=== PATIENT | female | born 1960 | race Caucasian/White ===

== ENCOUNTER 2017-08-26 20:00 | Emergency (ER) | payer OTHER ==
[~2017-08-26 20:00] MED LIST: BECL80AE3 INH; CLOB0.055 TOPICAL; CYCL5TAB PO; KETO2CRE TOPICAL; PANT40TA3 PO; SERT-129 PO; SIMV40TA PO; VENTAER INH
[2017-08-26 20:02] VITALS: BP 108/69; PULSE 106; RESP 16; TEMP 99; O2SAT 95
--- NOTE | 2017-08-26 20:57 | RADRPT ---
EXAM DATE/TIME: 08/26/2017 20:35 [place] COMPARISON: No previous studies available for comparison. INDICATIONS : Cough. MEDICAL HISTORY : Asthma SURGICAL HISTORY : Appendectomy. Hysterectomy. Breast reduction with reconstruction ENCOUNTER: Initial ACUITY: 1 day PAIN SCORE: 0/10 LOCATION: Bilateral chest FINDINGS: PA and lateral views of the chest demonstrate the lungs to be symmetrically aerated without evidence of mass, infiltrate or effusion. The cardiomediastinal contours are unremarkable. Osseous structure s are intact. CONCLUSION: No acute disease. Juan Miguel Alamo MD on August 26, 2017 at 20:54 Board Certified Radiologist. This report was verified electronically.
[2017-08-26 22:04] LABS: BACTERIA, URINE MOD /hpf; BILIRUBIN, URINE NEG (NEG); BLOOD, URINE SMALL (NEG); GLUCOSE,URINE NEG (NEG); KETONE, URINE NEG (NEG); MUCUS URINE MOD /lpf (OCC); NITRITE,URINE NEG (NEG); PH, URINE 5.5 (5.0-8.5); SQUAMOUS EPITHELIAL CELL URINE 3 /hpf (0-5); URINE COLOR YELLOW (YELLW/STRAW); URINE LEUKOCYTE ESTERASE LARGE (NEG)
[2017-08-26 22:50] VITALS: BP 129/70; PULSE 84; RESP 20; O2SAT 96
[2017-08-26] MEDS ORDERED: SODIUM CHLORIDE 0.9% FLUSH 10 ML FLUSH IVF PRN (23:00)
[2017-08-26] MEDS ORDERED: methylPREDNISolone SOD SUCC 125 MG/2 ML VIAL IV PUSH ONE (23:00)
[2017-08-26 23:04] LABS: AUTOMATED NEUTROPHIL # 9.7 TH/MM3 (1.8-7.7); BASOPHIL # 0.1 TH/MM3 (0-0.2); BASOPHIL % 0.4 % (0.0-2.0); EOSINOPHIL # 0.4 TH/MM3 (0-0.4); EOSINOPHIL % 2.8 % (0.0-4.0); HEMATOCRIT 39.2 % (35.0-46.0); HEMOGLOBIN 13.5 GM/DL (11.6-15.3); LYMPH % 13.1 % (9.0-44.0); LYMPHOCYTE # 1.7 TH/MM3 (1.0-4.8); MEAN CELL VOLUME 83.8 FL (80.0-100.0); MEAN CORPUSCULAR HEMOGLOBIN 28.9 PG (27.0-34.0); MEAN CORPUSCULAR HGB CONC 34.4 % (32.0-36.0); MEAN PLATELET VOLUME 6.3 FL (7.0-11.0); MONO % 7.5 % (0.0-8.0); NEUT % 76.2 % (16.0-70.0); PLATELET COUNT 322 TH/MM3 (150-450); RED BLOOD COUNT 4.68 MIL/MM3 (4.00-5.30); RED CELL DISTRIBUTION WIDTH 12.9 % (11.6-17.2); WHITE BLOOD COUNT 12.7 TH/MM3 (4.0-11.0)
--- NOTE | 2017-08-26 23:04 | PD ---
HPI Chief Complaint: Cold / Flu Symptoms Time Seen by Provider: 22:39 Travel History International Travel<30 days: No Contact w/Intl Traveler<30days: No Traveled to known affect area: No History of Present Illness HPI 57-year-old female complains of coughing congestion and wheezing shortness of breath and right groin pain. Patient has history of asthma. Patient states that the symptoms started yesterday. Patient states that she has dry cough. Patient states that she has chest tightness since yesterday also. Patient denies any fever chills. Patient states that she has shortness of breath. Patient complains of mild aching headache and body ache also. Patient states that she has chronic recurrent rash on the feet. Patient started having right inguinal pain since yesterday. Patient states that she fell some painful mass on the right groin area since yesterday. Patient denies any dysuria or frequency. PFSH Past Medical History Arthritis: Yes Asthma: No Blood Disorders: No Anxiety: Yes Depression: No Heart Rhythm Problems: No Cancer: No Cardiovascular Problems: No High Cholesterol: No Chest Pain: No Congestive Heart Failure: No COPD: No Diabetes: No Diminished Hearing: No Endocrine: No Hypertension: No Immune Disorder: No Implanted Vascular Access Dvce: No Musculoskeletal: No Neurologic: No Psychiatric: No Reproductive: No Respiratory: No Radiation Therapy: No Sleep Apnea: No Thyroid Disease: No Tetanus Vaccination: < 5 Years ?: Not Menopausal: Yes Past Surgical History Appendectomy: Yes Section: Yes (3) Hysterectomy: Yes Tonsillectomy: Yes Other Surgery: Yes (breast reconstrution, appendectomy,c section) Social History Alcohol Use: Yes (occassionally ) Tobacco Use: No Substance Use: No Allergies-Medications (Allergen,Severity, Reaction): Coded Allergies: hydromorphone (Verified Adverse Reaction, Mild, 08/26/17) Reported Meds & Prescriptions Reported Meds & Active Scripts Active Simvastatin 40 Mg Tab 40 Mg PO HS Sertraline (Sertraline HCl) 100 Mg Tab 100 Mg PO DAILY Flexeril (Cyclobenzaprine HCl) 5 Mg Tab 5 Mg PO TID Qvar Inh (Beclomethasone Dipropionate) 80 Mcg/Act Aero 1 Puff INH BID Ventolin Hfa 18 GM Inh (Albuterol Sulfate) 90 Mcg/Act Aer 2 Puff INH Q4H PRN Reported Ketoconazole Topical 2% Cream Unknown Dose TOPICAL BID Clobetasol Topical (Clobetasol Propionate) Unknown Strength Cream 0.05 % TOPICAL BID Pantoprazole (Pantoprazole Sodium) 40 Mg Tab 40 Mg PO DAILY Review of Systems General / Constitutional: No: Fever Eyes: No: Visual changes HENT: No: Headaches Cardiovascular: No: Chest Pain or Discomfort Respiratory: Positive: Cough, Shortness of Breath, Wheezing Gastrointestinal: No: Abdominal Pain Genitourinary: No: Dysuria Musculoskeletal: No: Pain Skin: No Rash Neurologic: No: Weakness Psychiatric: No: Depression Endocrine: No: Polydipsia Hematologic/Lymphatic: No: Easy Bruising Physical Exam Narrative GENERAL: Well-nourished, well-developed patient. SKIN: Focused skin assessment warm/dry. HEAD: Normocephalic. EYES: No scleral icterus. No injection or drainage. Throat: Nonerythematous. NECK: Supple, trachea midline. No JVD or lymphadenopathy. CARDIOVASCULAR: Regular rate and rhythm without murmurs, gallops, or rubs. RESPIRATORY: Breath sounds equal bilaterally. No accessory muscle use. Patient has mild to moderate expiratory wheezes bilaterally. No rhonchi. GASTROINTESTINAL: Abdomen soft, non-tender, nondistended. MUSCULOSKELETAL: No cyanosis, or edema. BACK: Nontender without obvious deformity. No CVA tenderness. Patient has bilateral inguinal lymphadenopathy, right worse than left. Patient has macerated red rash on bilateral feet on the plantar aspect. No discharge noted. Mild tenderness on palpation. Data Data Last Documented VS Vital Signs Date Time Temp Pulse Resp B/P (MAP) Pulse Ox O2 Delivery O2 Flow Rate FiO2 08/26/17 23:36 96 22 131/72 (91) 98 Nasal Cannula 2.00 08/26/17 20:02 99.0 Orders Orders Chest, Pa & Lat (08/26/17 ) Influenzae A/B Antigen (08/26/17 20:26) Complete Blood Count With Diff (08/26/17 20:26) Basic Metabolic Panel (Bmp) (08/26/17 20:26) Urinalysis - C+S If Indicated (08/26/17 20:26) Urine Culture (08/26/17 20:52) Iv Access Insert/Monitor (08/26/17 22:48) Oximetry (08/26/17 22:48) Sodium Chloride 0.9% Flush (Ns Flush) (08/26/17 23:00) Methylprednisolone So Succ Inj (Solumedr (08/26/17 23:00) Albuterol-Ipratropium Neb (Duoneb Neb) (08/26/17 23:00) Labs Laboratory Tests Test 08/26/17 20:52 08/26/17 22:50 Urine Color YELLOW Urine Turbidity HAZY Urine pH 5.5 Urine Specific [place] 1.024 Urine Protein TRACE mg/dL Urine Glucose (UA) NEG mg/dL Urine Ketones NEG mg/dL Urine Occult Blood SMALL Urine Nitrite NEG Urine Bilirubin NEG Urine Urobilinogen LESS THAN 2.0 MG/DL Urine Leukocyte Esterase LARGE Urine RBC 2 /hpf Urine WBC 2 /hpf Urine Squamous Epithelial Cells 3 /hpf Urine Bacteria MOD /hpf Urine Mucus MOD /lpf Microscopic Urinalysis Comment CULTURE INDICATED White Blood Count 12.7 TH/MM3 Red Blood Count 4.68 MIL/MM3 Hemoglobin 13.5 GM/DL Hematocrit 39.2 % Mean Corpuscular Volume 83.8 FL Mean Corpuscular Hemoglobin 28.9 PG Mean Corpuscular Hemoglobin Concent 34.4 % Red Cell Distribution Width 12.9 % Platelet Count 322 TH/MM3 Mean Platelet Volume 6.3 FL Neutrophils (%) (Auto) 76.2 % Lymphocytes (%) (Auto) 13.1 % Monocytes (%) (Auto) 7.5 % Eosinophils (%) (Auto) 2.8 % Basophils (%) (Auto) 0.4 % Neutrophils # (Auto) 9.7 TH/MM3 Lymphocytes # (Auto) 1.7 TH/MM3 Monocytes # (Auto) 1.0 TH/MM3 Eosinophils # (Auto) 0.4 TH/MM3 Basophils # (Auto) 0.1 TH/MM3 CBC Comment DIFF FINAL Differential Comment Blood Urea Nitrogen 10 MG/DL Creatinine 1.05 MG/DL Random Glucose 118 MG/DL Calcium Level 9.2 MG/DL Sodium Level 136 MEQ/L Potassium Level 3.7 MEQ/L Chloride Level 102 MEQ/L Carbon Dioxide Level 27.2 MEQ/L Anion Gap 7 MEQ/L Estimat Glomerular Filtration Rate 54 ML/MIN MDM Medical Decision Making Medical Screen Exam Complete: Yes Emergency Medical Condition: Yes Interpretation(s) Last Impressions Chest X-Ray 08/26/17 0000 Signed Impressions: Service Date/Time: Saturday, August 26, 2017 20:35 - CONCLUSION: No acute disease. Juan Miguel Alamo MD 12:06 AM. CBC WBC 12.7. 76 neutrophil. Creatinine 1.05. GFR 54. UA positive for bacteria. Influenza AB antigen negative. Differential Diagnosis Differential diagnoses including acute exacerbation of asthma, bronchitis, pneumonia, epididymitis, cellulitis. Narrative Course 57-year-old female with coughing congestion wheezing shortness of breath and bilateral feet rash and inguinal lymphadenopathy. Solu-Medrol 125 mg IV. Albuterol with Atrovent unit dose treatment 2. Vancomycin 1 g IV. Diagnosis Primary Impression: Acute asthma exacerbation Qualified Codes: J45.41 - Moderate persistent asthma with (acute) exacerbation Additional Impressions: Cellulitis of both feet Inguinal lymphadenitis Patient Instructions: General Instructions Additional Instructions: Use inhaler as directed. Take medications as directed. Follow-up with personal physician. Return if worse. Med/Other Pt SpecificInfo: Prescription(s) given Scripts [Bactroban Oint] No Conflict Check 1 APPLIC TOPICAL DAILY, #1 Prov: Kirk Guardado MD 08/27/17 Prednisone (Prednisone) 20 Mg Tab 20 MG PO BID, #10 TAB 0 Refills Prov: Kirk Guardado MD 08/27/17 Doxycycline Hyclate (Doxycycline Hyclate) 100 Mg Cap 100 MG PO BID for Infection, #20 CAP 0 Refills Prov: Kirk Guardado MD 08/27/17 Sulfamethoxazole-Trimethoprim (Bactrim DS) 800-160 Mg Tab 1 TAB PO BID for Infection, #20 TAB 0 Refills Prov: Kirk Guardado MD 08/27/17 Disposition: 01 DISCHARGE HOME Condition: Stable Kirk Guardado MD Aug 26, 2017 23:04
[2017-08-26 23:23] LABS: BICARBONATE 27.2 MEQ/L (21.0-32.0); CALCIUM 9.2 MG/DL (8.5-10.1); CREATININE 1.05 MG/DL (0.50-1.00)
[2017-08-26 23:25] VITALS: O2SAT 97
[2017-08-26] MEDS: RESP: ALBUTEROL 2.5 MG/IPRATROPIUM 0.5 MG NEB (SCH) INH (23:25)
[2017-08-26 23:36] VITALS: BP 131/72; PULSE 96; RESP 22; O2SAT 98
[2017-08-27] MEDS ORDERED: DOXY100C PO (00:10)
[2017-08-27] MEDS ORDERED: BACT800T5 PO (00:10)
[2017-08-27] MEDS ORDERED: PRED20 PO (00:10)
[2017-08-27] MEDS ORDERED: BACTROBAN OINT TOPICAL (00:11)
--- NOTE | 2017-08-27 11:05 | EKG ---
Date Performed: 08/26/2017 Time Performed: 22:44:11 PTAGE: 57 years EKG: Sinus rhythm LOW QRS VOLTAGE IN PRECORDIAL LEADS BORDERLINE ECG PREVIOUS TRACING : 09/28/2014 09.59 DOCTOR: Jarrett Euceda Interpretating Date/Time 08/27/2017 11:00:36
== END 2017-08-27 01:05 | disposition home or self-care (01) ==
LOC: NEPC 20:00
DX: J45.41 Moderate persistent asthma with (acute) exacerbation (principal); I88.9 Nonspecific lymphadenitis, unspecified; R82.71 Bacteriuria
CPT/HCPCS: 71046; 80048; 81001; 85025; 87086; 87804; 93005; 94640; 94664; 96374; 99285; J2930